=== PATIENT | female | born 1955 | race Caucasian/White ===

== ENCOUNTER 2021-05-13 11:31 | Outpatient (REF) | payer MEDICAID, SELFPAY ==
[2021-05-13 13:33] LABS: MANUAL DIFF FLAG NO
[2021-05-13 13:38] LABS: Basophils Absolute Auto 0.1 X10*3/uL (0.0-0.2); Basophils Percent Auto 0.6 % (0-2); Eosinophils Absolute Auto 0.2 X10*3/uL (0.0-0.4); Eosinophils Percent Auto 2.1 % (0-4); Hematocrit 42.5 % (37.0-47.0); Hemoglobin 13.7 g/dl (12.0-16.0); Imm Gran Abs Auto 0.01 X10*3/uL (0.00-0.03); Imm Gran Pct Auto 0.1 % (0.0-0.4); Lymphocytes Absolute Auto 2.3 X10*3/uL (1.2-4.9); Lymphocytes Percent Auto 26.6 % (20-40); Mean Corpuscular HGB Conc 32.2 g/dl (31.0-35.0); Mean Platelet Volume 10.7 fL (9.4-12.3); Monocytes Absolute Auto 0.4 X10*3/uL (0.1-1.2); Monocytes Percent Auto 5.2 % (2-11); Neutrophils Absolute Auto 5.6 x10*3/uL (2.0-8.3); Neutrophils Percent Auto 65.4 % (45-73); Platelet Count 205 X10*3/uL (160-400); Red Blood Count 4.57 X10*6/uL (4.20-5.50); Red Cell Distribution Width 12.5 % (11.0-16.0); White Blood Count 8.5 X10*3/uL (4.8-10.8)
[2021-05-13 13:50] LABS: Alanine Aminotransferase 10 U/L (0-31); Albumin Level 4.4 g/dL (3.5-5.0); Alkaline Phosphatase 102 U/L (39-117); Anion Gap 14 (12-20); Aspartate Amino Transferase 14 U/L (5-31); Bilirubin Total 0.3 mg/dL (0.0-1.0); Blood Urea Nitrogen 9 mg/dL (9-16); Calcium 9.3 mg/dL (8.4-10.2); Carbon Dioxide 23 mmol/L (22-29); Chloride 105 mmol/L (96-108); Cholesterol 282 mg/dL; Estimated Glomerular Filt Rate > 60; Glucose Random 82 mg/dL (60-115); Potassium 4.3 mmol/L (3.3-5.1); Sodium 138 mmol/L (135-145); Total Protein 7.1 g/dL (6.5-8.0)
[2021-05-13 14:14] LABS: Free T4 (Free Thyroxine) 1.03 ng/dL (0.71-1.85); Thyroid Stimulating Hormone 0.36 uIU/mL (0.32-4.0); Vitamin D 25-OH Total 53.6 ng/mL (>30)
[2021-05-14 09:21] LABS: Thyroid Peroxidase Antibodies 523 IU/mL (<9)
== END 2021-05-13 11:32 | disposition home or self-care (01) ==
LOC: HO.10HDL 11:31
PROVIDERS: Visit Provider Internal Medicine
DX: E06.3 Autoimmune thyroiditis (principal); L40.9 Psoriasis, unspecified; E55.9 Vitamin D deficiency, unspecified
CPT/HCPCS: 36415; 80053; 82306; 82465; 84439; 84443; 85025; 86376

== ENCOUNTER 2021-08-28 09:48 | Outpatient (REF) | payer MEDICARE, MEDICAID, SELFPAY ==
--- NOTE | ~2021-08-28 | MM_ITS ---
EXAMINATION: BONE DENSITOMETRY CLINICAL INDICATION: Vertebral fracture. COMPARISON: This is the patient's baseline examination. TECHNIQUE: Using a [employer] DXA System (software version: 13.1) manufactured by [employer], dual-energy x-ray absorptiometry was performed of the lumbar spine and left hip. The images are of good technical quality. Summary results are attached. FINDINGS: AP SPINE L1-L2 (excluding L3 and L4): The data of L1-L4 has been changed to exclude the L3 and L4 vertebral bodies, because degenerative changes at these levels may cause overestimation of lumbar spine density. BMD 0.847 g/cm2, Z-score -0.6, T-score -2.6, osteoporosis. LEFT FEMUR, NECK: BMD 0.639 g/cm2, Z-score -1.1, T-score -2.9, osteoporosis. LEFT FEMUR, TOTAL: BMD 0.668 g/cm2, Z-score -1.1, T-score -2.7, osteoporosis. IDENTIFIED RISK FACTORS: Menopause, glucocorticoids (chronic), history of fracture (adult). HISTORY OF FRACTURE: Shoulder, foot. MEDICATIONS: Calcium supplements or multivitamin, vitamin D. MM/XR DEXA axial skeleton IMPRESSION: 1. DIAGNOSIS: Osteoporosis based on the lowest T-score value of -2.9 in the femoral neck applying World Health Organization criteria. 2. 10-YEAR FRACTURE RISK PREDICTION, FRAX: According to the guidelines, FRAX calculation should only be performed on patients in the osteopenia bone density category. Therefore, FRAX was not performed on this patient. 3. Treatment Recommendations: NOF guidelines recommend consideration for treatment in postmenopausal women and men age 50 and older presenting with the following: -A hip or vertebral (clinical or morphometric) fracture. -T-score less than or equal to -2.5 at the femoral neck or spine after appropriate evaluation to exclude secondary causes. -Low bone mass at the hip or spine and a 10-year fracture probability by FRAX of greater than or equal to 3% for hip fracture or greater than or equal to 20% for major osteoporotic fracture based on the [place] adapted WHO algorithm. 4. Other Recommendations: All treatment decisions require clinical judgment and consideration of individual patient factors, including patient preferences, comorbidities, previous drug use, risk factors not captured in the FRAX model (e.g. frailty, falls, vitamin D deficiency, increased bone turnover, interval significant decline in bone density) and possible under or overestimation of fracture risk by FRAX. Additional medical evaluation for secondary cause of low bone mineral density may be appropriate. FUTURE SCAN RECOMMENDATION: People with diagnosed cases of osteoporosis or at high risk for fracture should have regular bone mineral density tests. For patients eligible for Medicare, routine testing is allowed once every 2 years. The testing frequency can be increased to one year for patients who have rapidly progressing disease, those who are receiving or discontinuing medical therapy to restore bone mass, or have additional risk factors.
== END 2021-08-28 09:49 | disposition home or self-care (01) ==
LOC: HO.MAMMO 09:48
PROVIDERS: Visit Provider Internal Medicine
DX: Z13.820 Encounter for screening for osteoporosis (principal); M85.80 Other specified disorders of bone density and structure, unspecified site; Z78.0 Asymptomatic menopausal state
CPT/HCPCS: 77080

== ENCOUNTER 2023-04-07 10:24 | Outpatient (AMB) | payer MEDICARE, SELFPAY ==
[2023-04-07 10:34] VITALS: BP 102/70; PULSE 70; BMI 18.9
--- NOTE | 2023-04-07 10:34 | A.OFFVIS_ITS ---
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 She also states that she is going to go for a back surgery but nothing scheduled as yet. Any case, she states due to osteoporosis she was started on Fosamax about an year ago. After that, she started having lot of symptoms like chest pain. Not clear if it is esophagitis or something cardiac. Any case, she went to [facility]. She was supposed to get a stress test but never materialized. Around the same time, she was also having lot of palpitations and her heart rates were apparently in the 140s at different times. Those symptoms have improved significantly since that time. These days, she rarely feels palpitations. Otherwise, she would like to get her cardiac status worked up. She has a history of shoulder injury around 2 and half years ago after a fall. She states she had a major surgery to fix that. [facility] Medical History (Updated 04/07/23 @ 11:57 by Ramiro Bird MD) Dyslipidemia Thyroid disease Family History (Updated 04/07/23 @ 10:38 by Peg Dozier) Mother No problems noted. Father No problems noted. Maternal Grandmother Heart attack Social History (Updated 04/07/23 @ 10:38 by Peg Dozier) Alcohol intake: never Patient Tobacco Use Status: Never used Tobacco Review of Systems Const Denies chills, Denies daytime sleepiness, Denies fatigue, Denies fever(s), Denies frequent falls, Denies night sweats, Denies snoring, Denies weakness, Denies weight gain and Denies weight loss Eyes Denies loss of vision ENT Denies dizziness and Denies hearing loss Card Denies chest pain, Denies chest pain with activity, Denies syncope, Denies rapid heart rate, Denies edema, Denies claudication, Denies leg edema, Denies lightheadedness, Denies palpitations, Denies dyspnea, Denies dyspnea on exertion and Denies orthopnea Resp Denies cough, Denies excessive phlegm production, Denies dyspnea, Denies dyspnea on exertion, Denies snoring and Denies wheezing GI Denies abdominal pain, Denies hematochezia, Denies change in bowel habits, Denies change in stool character, Denies heartburn, Denies nausea and Denies vomiting Denies hematuria, Denies urinary frequency and Denies dysuria Musc Denies arthralgias, Denies muscle weakness, Denies numbness and Denies tingling Skin/Breast Denies nail changes and Denies rash Neuro Denies Abnormal speech present, Denies dizziness, Denies syncope, Denies frequent falls, Denies loss of vision, Denies memory loss, Denies numbness, Denies tingling and Denies weakness Psych Denies depression and Denies memory loss Endo Denies fatigue and Denies palpitations Aller/Immun Denies wheezing Physical Exam Vital Signs: Last Vital Signs Pulse 70 04/07/23 10:34 BP 102/70 04/07/23 10:34 BMI result Body Mass Index 18.9 Const General: comfortable and no acute distress Orientation/consciousness: patient oriented x3 HEENT Other: Unremarkable Head: Yes normal to inspection Neck Neck: Yes normal visual inspection Chest Chest palpation & inspection: normal inspection of the chest Resp Auscultation: clear to auscultation bilaterally Cardio Palpation: normal PMI Heart sounds: S1 normal heart sound present, S2 normal heart sound present, no gallops, no murmurs and no rubs GI Palpation (GI): Soft to palpation Back/Spine/Pelvis Other: unremarkable Skin General skin exam: no rashes or lesions noted Neuro General: patient oriented x3 Speech: No Abnormal speech present Extrem General: Yes normal to inspection Psych Mental Status: mental status grossly normal Office Procedures EKG Details: EKG with sinus, 70/min, no significant ST-T changes, normal OR/QTc. [id number], Complete Assessment & Plan Assessment & Plan (1) Palpitations: Code(s): R00.2 - Palpitations Plan: With regard to the palpitations, very infrequent and hence will be difficult to diagnosed on a Holter or event monitor. If bothersome, we can probably repeat but she states she is already feeling much better. 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 We will also get the echo report from there. (2) Precordial chest pain: Code(s): R07.2 - Precordial pain Plan: Unclear if it is something from esophagitis from Fosamax or cardiac. Does not look like she can do a stress test as she has a shoulder injury and will not be able to lie down comfortably for prolonged. Also has back issues. Hence we can do a coronary CTA. Plan discussed and she is agreeable. Orders: Orders CT Cardiac Coronary Angio Today I25.10 - Atherosclerotic heart disease of [place] coronary artery without angina pectoris, R07.2 - Precordial pain Basic Metabolic Panel Today R07.2 - Precordial pain Coding Level of Care Code New Pt Level 4 (28418) Diagnoses Palpitations R00.2 Precordial chest pain R07.2 CPT Codes EKG - CPT: 75746-[id number], Complete ([id number])
== END 2023-04-07 11:15 | disposition home or self-care (01) ==
PROVIDERS: Visit Provider Internal Medicine
DX: R00.2 Palpitations (principal); R07.2 Precordial pain
CPT/HCPCS: 93010; 99204

== ENCOUNTER → 2023-04-07 10:24 | Outpatient (BNVA) | payer MEDICARE, SELFPAY | PROVIDERS: Visit Provider Internal Medicine | DX: R00.2 Palpitations (principal); R07.2 Precordial pain | CPT/HCPCS: 93005; 99202 ==

== ENCOUNTER 2023-04-15 12:26 | Outpatient (REF) | payer MEDICARE, SELFPAY ==
--- NOTE | ~2023-04-15 | XR_ITS ---
EXAMINATION: XR CHEST CLINICAL INFORMATION: Cough COMPARISON: None available. TECHNIQUE: 2 views of the chest were obtained. FINDINGS: Possible hilar fullness may reflect hilar adenopathy or mass. Recommend further evaluation with dedicated chest CT with contrast. Partially visualized left shoulder hardware. Otherwise, lungs are clear. No effusion or pneumothorax. XR/XR chest 2V IMPRESSION: Possible hilar fullness may reflect hilar adenopathy or mass. Recommend further evaluation with dedicated chest CT with contrast.
[2023-04-15 12:59] LABS: MANUAL DIFF FLAG NO
[2023-04-15 13:28] LABS: Basophils Absolute Auto 0.1 X10*3/uL (0.0-0.2); Basophils Percent Auto 0.9 % (0-2); Eosinophils Absolute Auto 0.2 X10*3/uL (0.0-0.4); Eosinophils Percent Auto 2.4 % (0-4); Hematocrit 37.9 % (37.0-47.0); Hemoglobin 12.8 g/dl (12.0-16.0); Imm Gran Abs Auto 0.03 X10*3/uL (0.00-0.03); Imm Gran Pct Auto 0.4 % (0.0-0.4); Lymphocytes Absolute Auto 3.2 X10*3/uL (1.2-4.9); Lymphocytes Percent Auto 40.5 % (20-40); Mean Corpuscular HGB Conc 33.8 g/dl (31.0-35.0); Mean Corpuscular Hemoglobin 31.4 pg (27.0-33.0); Mean Corpuscular Volume 92.9 fL (80.0-98.0); Mean Platelet Volume 9.8 fL (9.4-12.3); Monocytes Absolute Auto 0.5 X10*3/uL (0.1-1.2); Neutrophils Percent Auto 49.8 % (45-73); Platelet Count 199 X10*3/uL (160-400); Red Blood Count 4.08 X10*6/uL (4.20-5.50); Red Cell Distribution Width 12.7 % (11.0-16.0)
[2023-04-15 14:04] LABS: Alanine Aminotransferase 31 U/L (0-31); Albumin Level 4.2 g/dL (3.5-5.0); Alkaline Phosphatase 97 U/L (39-117); Anion Gap 11 (12-20); Aspartate Amino Transferase 16 U/L (5-31); Bilirubin Total 0.2 mg/dL (0.0-1.0); Blood Urea Nitrogen 18 mg/dL (9-16); C Reactive Protein 1.43 mg/dL (< or = 0.50); Calcium 9.2 mg/dL (8.4-10.2); Carbon Dioxide 25 mmol/L (22-29); Chloride 106 mmol/L (96-108); Estimated Glomerular Filt Rate > 60; Glucose Random 81 mg/dL (60-115); Potassium 4.3 mmol/L (3.3-5.1); Sodium 138 mmol/L (135-145); Total Protein 7.2 g/dL (6.5-8.0)
[2023-04-15 14:19] LABS: Free T4 (Free Thyroxine) 0.83 ng/dL (0.71-1.85); Thyroid Stimulating Hormone 30.14 uIU/mL (0.32-4.0)
[2023-04-15 14:23] LABS: Influenza A PCR NEGATIVE (Negative); Influenza B PCR NEGATIVE (Negative); Resp Syncy Virus RNA Qual PCR NEGATIVE (Negative); SARS COV2 PCR INHOUSE POSITIVE (Negative)
== END 2023-04-15 12:27 | disposition home or self-care (01) ==
LOC: HO.LAB 12:26
PROVIDERS: PCP Internal Medicine; Visit Provider Internal Medicine
DX: R53.83 Other fatigue (principal); R05.9 Cough, unspecified; E03.9 Hypothyroidism, unspecified; Z86.16 Personal history of COVID-19; Z11.52 Encounter for screening for COVID-19; Z20.828 Contact with and (suspected) exposure to other viral communicable diseases
CPT/HCPCS: 0241U; 71046; 80053; 82550; 84439; 84443; 85025; 86140

== ENCOUNTER 2023-07-28 10:03 | Outpatient (AMB) | payer MEDICARE, SELFPAY ==
--- NOTE | 2023-07-28 10:06 | MHC.OFFVIS ---
Vital Signs 07/28/23 10:07 Height 5 ft 4 in Weight 110 lb BMI 18.9 BMI Reason not done Patient refused/unable BP 110/60 Blood Pressure Location Lt brachial Position Sitting Pulse 86 Pulse Source Pulse Oximeter Pulse Oximetry (%) 99 Oxygen Delivery Method Room Air Intake Visit Reasons: Follow up post coronary CTA Allergies fentanyl Adverse Reaction (Intermediate, Verified 04/07/23 10:35) Unknown Sulfa (Sulfonamide Antibiotics) Adverse Reaction (Intermediate, Verified 04/07/23 10:35) Unknown cavi wipes Adverse Reaction (Severe, Uncoded 04/07/23 10:36) Unknown Medication List - Last Reconciled 07/28/23 by Ramiro Bird MD ergocalciferol (vitamin D2) 2,500 mcg PO QWEEK ezetimibe 10 mg PO DAILY levothyroxine 100 mcg PO DAILY morphine 15 mg PO BID PRN HPI Comments Details: Kaila returns for follow-up. It seems that she he is on Fosamax due to osteoporosis. After that was started, she is having lot of symptoms like chest pain. Hence not clear if it was not clear if it was Fosamax stated issue or something cardiac. It seems that she was seemed at [facility] but she would like to switch here. Additionally, she is also noticing palpitations at different times. However, that is improved recently. Otherwise, no new complaints. She feels that lot of her issues are related to her thyroid dysfunction. She is planning to go to [facility] tomorrow for consultation. [facility] Medical History (Updated 07/28/23 @ 11:29 by Ramiro Bird MD) Dyslipidemia Thyroid disease Family History (Updated 04/07/23 @ 10:38 by Peg Dozier) Mother No problems noted. Father No problems noted. Maternal Grandmother Heart attack Social History (Updated 04/07/23 @ 10:38 by Peg Dozier) Alcohol intake: never Patient Tobacco Use Status: Never used Tobacco Review of Systems Const Denies weakness ENT Denies dizziness Card Denies chest pain, Denies chest pain with activity, Denies syncope, Denies rapid heart rate, Denies pedal edema, Denies edema, Denies leg edema, Denies lightheadedness, Denies palpitations, Denies dyspnea, Denies dyspnea on exertion and Denies orthopnea Resp Denies cough, Denies dyspnea and Denies dyspnea on exertion GI Denies hematochezia and Denies change in stool character Musc Denies abnormal gait, Denies muscle cramps, Denies muscle weakness, Denies numbness, Denies radiating pain into limb and Denies tingling Neuro Denies abnormal gait, Denies dizziness, Denies syncope, Denies numbness, Denies tingling and Denies weakness Endo Denies palpitations Physical Exam Vital Signs: Last Vital Signs Pulse 86 07/28/23 10:07 BP 110/60 07/28/23 10:07 Pulse Ox 99 07/28/23 10:07 Oxygen Delivery Method Room Air 07/28/23 10:07 BMI result Body Mass Index 18.9 Const General: comfortable and no acute distress Orientation/consciousness: patient oriented x3 HEENT Other: Unremarkable Head: Yes normal to inspection Neck Neck: Yes normal visual inspection Chest Chest palpation & inspection: normal inspection of the chest Resp Auscultation: clear to auscultation bilaterally Cardio Palpation: normal PMI Heart sounds: S1 normal heart sound present, S2 normal heart sound present, no gallops, no murmurs and no rubs GI Palpation (GI): Soft to palpation Back/Spine/Pelvis Other: unremarkable Skin General skin exam: no rashes or lesions noted Neuro General: patient oriented x3 Extrem General: Yes normal to inspection Psych Mental Status: mental status grossly normal Assessment & Plan Assessment & Plan (1) Precordial chest pain: Code(s): R07.2 - Precordial pain Category: Medical Plan: In the coronary CTA, there is minimal stenosis in the LAD/circumflex. Unlikely to be causing symptoms. There is also description of thickened/patulous esophagus with air-fluid levels suggesting esophageal dysmotility. Unclear if that is rather causing chest pain. Will refer her to GI for further evaluation. She agrees. (2) Palpitations: Code(s): R00.2 - Palpitations Category: Medical Plan: In prior Holter monitor, rare supraventricular ectopy with brief runs. Very rare ventricular ectopy. Mobitz type 1 block during sleep hours. Overall, nothing significant and we discussed these findings today. (3) Dyslipidemia: Code(s): E78.5 - Hyperlipidemia, unspecified Category: Medical Plan: Per patient, longstanding dyslipidemia and she also has intolerance to statins as well as Repatha. Advised to check lipids again and then we can try Praluent. She agrees. Plan Total time spent including review of data, counseling, documentation, coordination care-31 min. Orders: Orders Lipid Panel Today E78.5 - Hyperlipidemia, unspecified LDL Cholesterol Direct Today E78.2 - Mixed hyperlipidemia Referrals Gastroenterology Referral K22.4 - Dyskinesia of esophagus Medications: New alirocumab (Praluent Pen) inject into abdomen, thigh, or upper arm (deltoid muscle); rotate sites 75 mg subcut Q2W 2 mL 5RF E78.5 - Hyperlipidemia, unspecified Coding Level of Care Code Est Pt Level 4 (89583) Diagnoses Precordial chest pain R07.2 Palpitations R00.2 Dyslipidemia E78.5
[2023-07-28 10:07] VITALS: BP 110/60; PULSE 86; O2SAT 99; BMI 18.9
== END 2023-07-28 10:38 | disposition home or self-care (01) ==
PROVIDERS: PCP Internal Medicine; Referring Provider Internal Medicine; Visit Provider Internal Medicine
DX: R07.2 Precordial pain (principal); R00.2 Palpitations; E78.5 Hyperlipidemia, unspecified
CPT/HCPCS: 99214

== ENCOUNTER → 2023-07-28 10:03 | Outpatient (BNVA) | payer MEDICARE, SELFPAY | PROVIDERS: PCP Internal Medicine; Visit Provider Internal Medicine | DX: R07.2 Precordial pain (principal); R00.2 Palpitations; E78.5 Hyperlipidemia, unspecified | CPT/HCPCS: 99212 ==

== ENCOUNTER → 2024-08-25 10:54 | Outpatient (BNVA) | payer MEDICARE, SELFPAY | PROVIDERS: PCP Internal Medicine; Visit Provider Physician Assistant | DX: E03.9 Hypothyroidism, unspecified (principal); E04.1 Nontoxic single thyroid nodule; M81.0 Age-related osteoporosis without current pathological fracture; E78.5 Hyperlipidemia, unspecified; K22.4 Dyskinesia of esophagus; Z79.899 Other long term (current) drug therapy; Z13.31 Encounter for screening for depression; Z13.30 Encounter for screening examination for mental health and behavioral disorders, unspecified | CPT/HCPCS: 96127; 99202 ==

== ENCOUNTER 2024-08-25 15:34 | Outpatient (AMB) | payer MEDICARE, SELFPAY ==
--- NOTE | 2024-08-25 15:17 | A.OFFPC_ITS ---
Vital Signs 08/25/24 15:46 Height 5 ft 4 in Weight 108 lb BMI 18.5 BP 112/68 Respiration 16 Pulse 71 Pulse Source Pulse Oximeter Temp 97.8 F Temp Source Temporal Artery Scan Pulse Oximetry (%) 98 Oxygen Delivery Method Room Air Intake Visit Reasons: Routine Migration Agent Required: No Accompanied by: Self / Same As Patient Allergies fentanyl Adverse Reaction (Intermediate, Verified 08/25/24 15:17) Unknown Sulfa (Sulfonamide Antibiotics) Adverse Reaction (Intermediate, Verified 08/25/24 15:17) Unknown cavi wipes Adverse Reaction (Severe, Uncoded 08/26/23 07:46) Unknown Tobacco use date assessed: 08/25/24 Fall risk assessment: No Falls in past year Last assessed Fall Risk: 08/25/24 Dental Screening Dental Screen Date: 08/25/24 Did you have a dental visit in the last 12 months?: Yes Did you have a dental problem in the last 6 months where you did not have access to dental care?: No HPI HPI Comments History of Present Illness Details Kaila is a 69 year old with a past medical history of hyperlipidemia, hypothyroid, ddd lumbar spine presenting for follow up Endocrine: Was following with Dr Bender who is retiring. Hypothyroid: Last TSH elevated. Levothyroxine increased to 112mcg daily. Is starting new dose tomorrow Osteoporosis: Was on fosamax. Caused GI distress, chest pain Mammo 06/2023 DXA 2021 Colguard ordered ROS CONSTITUTIONAL: Denies weight loss, fever and chills. HEENT: Denies changes in vision and hearing. RESPIRATORY: Denies SOB and cough. CV: Denies palpitations and CP GI: Denies abdominal pain, nausea, vomiting and diarrhea. : Denies dysuria and urinary frequency. MSK: Denies new myalgia and joint pain. SKIN: Denies rash and pruritus. NEUROLOGICAL: Denies headache PSYCHIATRIC: Denies recent changes in mood. PHYSICAL EXAM: GENERAL: Alert and oriented x 3. NAD EYES: EOMI. Anicteric. HENT: Moist mucous membranes. No scleral icterus. No cervical lymphadenopathy. LUNGS: Clear to auscultation bilaterally. CARDIOVASCULAR: Regular rate and rhythm. No murmur. No JVD. ABDOMEN: Soft, non-tender +bs EXTREMITIES: No edema. Non-tender. SKIN: No rashes or lesions. Warm. NEUROLOGIC: No focal neurological deficits. CN II-XII grossly intact PSYCHIATRIC: Cooperative. Appropriate mood and affect [facility] Medical History Dyslipidemia Thyroid disease Family History Mother No problems noted. Father No problems noted. Maternal Grandmother Heart attack Social History Housing: House Alcohol intake: never Patient Tobacco Use Status: Never used Tobacco e-Cigarette/Vaping Use: Never Used service: No Current occupational status: retired Cognitive needs: No Hearing needs: No Vision needs: No Questionnaire PHQ-9 Over the last 2 weeks, how often have you been bothered by any of the following problems? 1. Little interest or pleasure in doing things: not at all 2. Feeling down, depressed, or hopeless: not at all 3. Trouble falling or staying asleep, or sleeping too much: not at all 4. Feeling tired or having little energy: not at all 5. Poor appetite or overeating: not at all 6. Feeling bad about yourself - or that you are a failure or have let yourself or your family down: not at all 7. Trouble concentrating on things, such as reading the newspaper or watching television: not at all 8. Moving or speaking so slowly that other people could have noticed. Or the opposite - being so fidgety or restless that you have been moving around a lot m ore than usual: not at all 9. Thoughts that you would be better off or of hurting yourself in some way: not at all Total score: 0 Depression Screening Interpretation: Negative Depression Screening Done: Yes 22790 - PHQ-9 Billing: Yes Source: Developed by Drs. Joe Cabello, Marine Miguel, Titi Ho and colleagues, with an educational dot from [email or web address]. Thrive Questionnaire Date Thrive assessed: 08/25/24 I am a: Patient Within the past 12 months, did the food you bought not last and you didn't have the money to get more?: Never true Within the past 12 months, did you worry whether your food would run out before you got money to buy more?: Never true Do you have trouble paying for medicines?: No Do you have trouble getting transportation to medical appointments?: No Do you have trouble paying your heating and electricity bill?: No Do you have trouble taking care of your child, family member or friend?: No Do you have trouble with day-to-day activities such as bathing, preparing meals, shopping, managing finances, etc.?: No Are you currently unemployed and looking for a job?: No Are you interested in more education?: No THRIVE Score: 0 AUDIT C Alcohol Use Questionnaire (AUDIT-C) 1. How often do you have a drink containing alcohol?: Never 3. How often do you have six or more drinks on one occasion?: Never Total Score: 0 FRANCES-7 AMB Questionnaire FRANCES-7 Date FRANCES - 7 assessed: 08/25/24 Feeling nervous, anxious, or on edge: 0 = Not at all Not being able to stop or control worryin = Not at all Worrying too much about different things: 0 = Not at all Trouble relaxin = Not at all Being so restless that it is hard to sit still: 0 = Not at all Becoming easily annoyed or irritable: 0 = Not at all Feeling afraid as if something awful might happen: 0 = Not at all Total FRANCES-7 score (0-4 normal; 5-9 mild; 10-14 moderate; 15-21 severe): 0 Source: Developed by Drs. Joe Cabello, Marine Miguel, Titi Ho and colleagues, with an educational dot from [email or web address]. Physical exam (Primary Care) Tobacco/Smoking Status: Tobacco use Status Tobacco use date assessed 08/25/24 08/25/24 15:19 Patient Tobacco Use Status Never used Tobacco 08/25/24 15:19 e-Cigarette/Vaping Use Never Used 08/25/24 15:19 PHQ-9: PHQ-9 Score PHQ-9: Total score 0 08/25/24 15:42 Depression Screening Interpretation: Negative Thrive Assessment: Date of Thrive Assessment Date Thrive assessed 08/25/24 08/25/24 15:19 Coding Level of Care Code New Pt Level 4 (72569) Complex EM visit Add On G2211 Diagnoses Hypothyroidism, unspecified type E03.9 Hypothyroidism type: unspecified Thyroid nodule E04.1 Osteoporosis, unspecified osteoporosis type, unspecified pathological fracture presence M81.0 Osteoporosis type: unspecified Presence of current pathological fracture: unspecified Dyslipidemia E78.5 Esophageal dysmotility K22.4 Additional Codes PHQ-9 - 69829 - PHQ-9 Billing: Yes ([id number]) Assessment & Plan Assessment & Plan (1) Hypothyroid: Code(s): E03.9 - Hypothyroidism, unspecified Category: Medical Qualifiers: Hypothyroidism type: unspecified Qualified Code(s): E03.9 - Hypothyroidism, unspecified (2) Thyroid nodule: Code(s): E04.1 - Nontoxic single thyroid nodule Category: Medical (3) Osteoporosis: Code(s): M81.0 - Age-related osteoporosis without current pathological fracture Category: Medical Qualifiers: Osteoporosis type: unspecified Presence of current pathological fracture: unspecified Qualified Code(s): M81.0 - Age-related osteoporosis without current pathological fracture (4) Dyslipidemia: Code(s): E78.5 - Hyperlipidemia, unspecified Category: Medical (5) Esophageal dysmotility: Code(s): K22.4 - Dyskinesia of esophagus Category: Medical Plan 69 year old to establish care past medical, surgical, social reviewed. mammo & DXA ordered Cologuard ordered Biochemically and clinically hypothyroid-starting new dose. recheck 8 weeks Orders: Orders US thyroid Today E04.1 - Nontoxic single thyroid nodule XR DEXA axial skeleton Today M81.0 - Age-related osteoporosis without current pathological fracture Vitamin D 25-OH (D2 and D3) Today M81.0 - Age-related osteoporosis without current pathological fracture TSH reflex Free T4 8 Weeks E03.9 - Hypothyroidism, unspecified MM screening mammo BI Today Z12.31 - Encounter for screening mammogram for malignant neoplasm of breast Referrals Cologuard Test Z12.11 - Encounter for screening for malignant neoplasm of colon, Z12.12 - Encounter for screening for malignant neoplasm of rectum
[2024-08-25 15:46] VITALS: BP 112/68; PULSE 71; RESP 16; TEMP 36.6; O2SAT 98; BMI 18.5
== END 2024-08-25 16:13 | disposition home or self-care (01) ==
LOC: HO.HMCHD 15:35
PROVIDERS: PCP Internal Medicine; Visit Provider Internal Medicine
DX: E03.9 Hypothyroidism, unspecified (principal); E04.1 Nontoxic single thyroid nodule; M81.0 Age-related osteoporosis without current pathological fracture; E78.5 Hyperlipidemia, unspecified; K22.4 Dyskinesia of esophagus

== ENCOUNTER 2024-12-01 09:12 | Outpatient (AMB) | payer MEDICARE, SELFPAY ==
--- NOTE | 2024-12-01 09:17 | MHC.PC.OV ---
Vital Signs 12/01/24 09:25 Height 5 ft 4 in Weight 117 lb 4 oz BMI 20.1 BMI Reason not done Patient refused/unable BP 100/64 Blood Pressure Location Rt brachial Position Sitting Respiration 14 Pulse 83 Pulse Source Pulse Oximeter Temp 97.8 F Temp Source Temporal Artery Scan Pulse Oximetry (%) 97 Oxygen Delivery Method Room Air Intake Visit Reasons: T[facility] from [address] [place] [address] dr Gallardo Note: Kaila presents in the office today for a follow up. Issues with thyroid levels. Patient is fasting and would like to do labs. Allergies fentanyl Adverse Reaction (Intermediate, Verified 12/01/24 09:20) Unknown Sulfa (Sulfonamide Antibiotics) Adverse Reaction (Intermediate, Verified 12/01/24 09:20) Unknown cavi wipes Adverse Reaction (Severe, Uncoded 12/01/24 09:20) Unknown Tobacco use date assessed: 12/01/24 Dental Screening Dental Screen Date: 12/01/24 Did you have a dental visit in the last 12 months?: Yes Did you have a dental problem in the last 6 months where you did not have access to dental care?: No Was dental information given to patient?: Patient has dentist HPI HPI Comments History of Present Illness Details Kaila is a 69 year old with a past medical history of hyperlipidemia, hypothyroid, ddd lumbar spine presenting for follow up Patient broke down on the [employer] 1am last night. Waited on the [employer]. She checked her tires prior to leaving. Frustrated. Endocrine: Was following with Dr Bender who just retired. Hypothyroid: Last TSH elevated. Levothyroxine increased but repeat TSH was still elevated. Osteoporosis: Was on fosamax. Caused GI distress, chest pain Interested in hormone replacement therapy patches specifically. She is achy and fatigued MSK: Follows with [facility]. Mammo 06/2023-[facility] DXA 2021 Cologuard ordered ROS CONSTITUTIONAL: Denies weight loss, fever and chills. HEENT: Denies changes in vision and hearing. RESPIRATORY: Denies SOB and cough. CV: Denies palpitations and CP GI: Denies abdominal pain, nausea, vomiting and diarrhea. : Denies dysuria and urinary frequency. MSK: Denies new myalgia and joint pain. SKIN: Denies rash and pruritus. NEUROLOGICAL: Denies headache PSYCHIATRIC: Denies recent changes in mood. PHYSICAL EXAM: GENERAL: Alert and oriented x 3. NAD EYES: EOMI. Anicteric. HENT: Moist mucous membranes. No scleral icterus. No cervical lymphadenopathy. LUNGS: Clear to auscultation bilaterally. CARDIOVASCULAR: Regular rate and rhythm. No murmur. No JVD. ABDOMEN: Soft, non-tender +bs EXTREMITIES: No edema. Non-tender. SKIN: No rashes or lesions. Warm. NEUROLOGIC: No focal neurological deficits. CN II-XII grossly intact PSYCHIATRIC: Cooperative. Appropriate mood and affect [facility] Medical History Lumbar spondylosis Lumbar radiculopathy Dyslipidemia Thyroid disease Family History Mother No problems noted. Father No problems noted. Maternal Grandmother Heart attack Social History Housing: House Alcohol intake: never Patient Tobacco Use Status: Never used Tobacco e-Cigarette/Vaping Use: Never Used Second Hand Smoke Exposure: No service: No Current occupational status: retired Cognitive needs: No Hearing needs: No Vision needs: No Questionnaire Thrive Questionnaire Date Thrive assessed: 08/25/24 FRANCES-7 AMB Questionnaire FRANCES-7 Date FRANCES - 7 assessed: 08/25/24 Source: Developed by Drs. Joe Cabello, Marine Miguel, Titi Ho and colleagues, with an educational dot from [employer]. Physical exam (Primary Care) Vital Signs: Last Vital Signs Temp 97.8 F 12/01/24 09:25 Pulse 83 12/01/24 09:25 Resp 14 12/01/24 09:25 BP 100/64 12/01/24 09:25 Pulse Ox 97 12/01/24 09:25 Oxygen Delivery Method Room Air 12/01/24 09:25 BMI result Body Mass Index 20.1 Tobacco/Smoking Status: Tobacco use Status Tobacco use date assessed 12/01/24 12/01/24 09:28 Patient Tobacco Use Status Never used Tobacco 12/01/24 09:25 e-Cigarette/Vaping Use Never Used 12/01/24 09:25 Thrive Assessment: Date of Thrive Assessment Date Thrive assessed 08/25/24 12/01/24 09:19 Coding Level of Care Code Est Pt Level 4 (74090) Complex EM visit Add On G2211 Diagnoses Hypothyroidism, unspecified type E03.9 Hypothyroidism type: unspecified Dyslipidemia E78.5 Lumbar radiculopathy M54.16 Assessment & Plan Assessment & Plan (1) Hypothyroid: Code(s): E03.9 - Hypothyroidism, unspecified Category: Medical Qualifiers: Hypothyroidism type: unspecified Qualified Code(s): E03.9 - Hypothyroidism, unspecified (2) Dyslipidemia: Code(s): E78.5 - Hyperlipidemia, unspecified Category: Medical (3) Lumbar radiculopathy: Comment: [facility]. L5-S1 interlaminar epidural injections Code(s): M54.16 - Radiculopathy, lumbar region Category: Medical Plan 69 year old for follow up Hypothyroid-Recommend synthroid. Could consider integrative, t3 replacement etc. Discussed pro-con HRT. Sent patches Osteoporosis-could consider rheum/endocrine Orders: Orders Triiodothyronine T3 Free 12/01/24 E03.9 - Hypothyroidism, unspecified, E78.5 - Hyperlipidemia, unspecified, M81.0 - Age-related osteoporosis without current pathological fracture, R53.83 - Other fatigue IRON PROFILE 12/01/24 E03.9 - Hypothyroidism, unspecified, E78.5 - Hyperlipidemia, unspecified, M81.0 - Age-related osteoporosis without current pathological fracture, R53.83 - Other fatigue Thyroid Peroxidase Antibodies 12/01/24 E03.9 - Hypothyroidism, unspecified, E78.5 - Hyperlipidemia, unspecified, M81.0 - Age-related osteoporosis without current pathological fracture, R53.83 - Other fatigue Free T4 (Free Thyroxine) 12/01/24 E03.9 - Hypothyroidism, unspecified, E78.5 - Hyperlipidemia, unspecified, M81.0 - Age-related osteoporosis without current pathological fracture, R53.83 - Other fatigue Triiodothyronine T3 Total 12/01/24 E03.9 - Hypothyroidism, unspecified, E78.5 - Hyperlipidemia, unspecified, M81.0 - Age-related osteoporosis without current pathological fracture, R53.83 - Other fatigue TSH reflex Free T4 12/01/24 E03.9 - Hypothyroidism, unspecified, E78.5 - Hyperlipidemia, unspecified, M81.0 - Age-related osteoporosis without current pathological fracture, R53.83 - Other fatigue Thyroid Stimulating Hormone 12/01/24 E03.9 - Hypothyroidism, unspecified, E78.5 - Hyperlipidemia, unspecified, M81.0 - Age-related osteoporosis without current pathological fracture, R53.83 - Other fatigue Vitamin B12 and Folate 12/01/24 E03.9 - Hypothyroidism, unspecified, E78.5 - Hyperlipidemia, unspecified, M81.0 - Age-related osteoporosis without current pathological fracture, R53.83 - Other fatigue Medications: New estradiol-levonorgestrel 0.045-0.015 mg/24 hr 1 patch transdermal QWEEK 4 ea 3RF
[2024-12-01 09:25] VITALS: BP 100/64; PULSE 83; RESP 14; TEMP 36.6; O2SAT 97; BMI 20.1
--- OUTSIDE RECORDS SUMMARY | 2024-12-01 09:50 | XMS_ITS | Clinical Summary ---
Author Organization [facility] Address [address] [place] [address] Phone Care Team Providers Care Shipwright Supervisor Name Role Phone Laurence Garner MD Primary Care Provider [phone] Encounters Date Type Department Care Team Description 10/18/2024 12:54 PM EDT - 10/18/2024 11:59 PM EDT [facility] [address] [phone] Other signs and symptoms in breast Discharge Disposition: Home or Self Care 10/16/2024 2:12 PM EDT - 10/16/2024 11:59 PM EDT Hospital Encounter [facility] Ultrasound [address] [place] [phone] Nontoxic single thyroid nodule Discharge Disposition: Home or Self Care 09/11/2024 7:25 AM EDT - 09/11/2024 11:59 PM EDT Hospital Encounter [facility] Bone Density [address] [place] [phone] Age-related osteoporosis without current pathological fracture Discharge Disposition: Home or Self Care from Last 3 Months Surgical History Surgery Date Site/Laterality Comments STEREOTACTIC CORE BIOPSY BREAST LUMPECTOMY Social History Tobacco Use Types Packs/Day Years Used Date Smoking Tobacco: Never Assessed Comments No Sex and Gender Information Value Date Recorded Sex Assigned at Female 08/29/2024 9:44 AM EDT Legal Sex Female 11:19 AM EST Gender Identity Female 08/29/2024 9:44 AM EDT Sexual Orientation Straight 08/29/2024 9: 44 AM EDT Obstetrics History Last Filed Vital Signs Vital Sign Reading Time Taken Comments Blood Pressure - - Pulse - - Temperature - - Respiratory Rate - - Oxygen Saturation - - Inhaled Oxygen Concentration - - Weight 48.5 kg (107 lb) 10/18/2024 1:09 PM EDT Height 165.1 cm (5' 5 ) 10/18/2024 1:09 PM EDT Body Mass Index 17.81 10/18/2024 1:09 PM EDT Plan of Treatment Health Maintenance Due Date Last Done Comments DTaP,Tdap,and Td Vaccines (1 - Tdap) 07/31/1975 Pneumococcal Vaccine: 50+ Years (1 of 1 - PCV) 2006 Zoster Vaccines (1 of 2) 2006 Colorectal Cancer Screening: Colonoscopy 02/10/2022 Falls Risk Assessment 02/10/2022 Hepatitis C Screening 02/10/2022 Medicare Annual Wellness Visit 02/10/2022 Social Influencers of Health Screening 02/10/2022 Depression Screening 03/15/2024 COVID-19 Vaccine (1 - 2023-2 5 season) 2024 Influenza Vaccine (#1) 2024 , 01/17/2019, 12/15/2017 Breast Cancer Screening 10/18/2026 10/19/19 25, 06/05/2021 Osteoporosis Screening (Bone Density Screening) 09/11/2034 09/11/2024 RSV Immunization Adult Patients Completed 02/02/2023 HIB Vaccines Aged Out No longer eligi ble based on patient's age to complete this topic HPV Vaccines Aged Out No longer eligi ble based on patient's age to complete this topic Hepatitis A Vaccines Aged Out No long er eligible based on patient's age to complete this topic Hepatitis B Vaccines Aged Out No long er eligible based on patient's age to complete this topic IPV Vaccines Aged Out No longer eligi ble based on patient's age to complete this topic MMR Vaccines Aged Out No longer eligi ble based on patient's age to complete this topic Meningococcal ACWY Vaccine Aged Out N o longer eligible based on patient's age to complete this topic Meningococcal B Vaccine Aged Out No l onger eligible based on patient's age to complete this topic RSV Immunization Patients Under 20 months Aged Out No longer eligible b ased on patient's age to complete this topic Varicella Vaccines Aged Out No longer eligible based on patient's age to complete this topic Procedures Procedure Name Priority Date/Time Associated Diagnosis Comments MG MAMMO DIGITAL DIAGNOSTIC W ALEXX BILAT Routine 10/18/2024 2:04 PM EDT Other signs and symptoms in breast US HEAD NECK SOFT TISSUE Routine 10/16/2024 2:49 PM EDT Nontoxic single thyroid nodule BD BONE DENSITY DXA AXIAL SKELETON Routine 09/11/2024 8:10 AM EDT Age-related osteoporosis without current pathological fracture from Last 3 Months Results * MG Mammo Digital Diagnostic w Alexx bilat (10/18/2024 2:04 PM EDT) Anatomical Region Laterality Modality Breast Bilateral Mammography 10/18/2024 1:25 PM EDT Impressions 10/18/2024 3:23 PM EDT No evidence of breast malignancy. BI-RADS CATEGORY: 2 - BENIGN RECOMMENDATION: Screening bilateral mammogram is recommended in 1 year. Mammo Location: [facility], [address] [place] [address], [address], . -------- FINAL REPORT -------- Dictated By: Tosha Garcia Dictated Date: 10/18/2024 13:25 ET Assigned Physician: Tosha Garcia Reviewed and Electronically Signed By: Tosha Garcia Signed Date: 10/18/2024 15:23 ET Workstation ID: [id number] Transcribed By: Self Edit Transcribed Date: 10/18/2024 13:38 ET Narrative 10/18/2024 3:23 PM EDT CLINICAL: 69 years old, Female, follow-up of benign biopsy. COMPARISON: 07/02/2023, 12/29/2022, 06/25/2022, 05/25/2022, 12/09/2021, 06/05/2021, 03/14/2020 TECHNIQUE: Bilateral MLO and CC views were obtained digitally with 3-D mammogram (digital breast tomosynthesis). Computer-aided detection was utilized in evaluation of this exam (CAD). FINDINGS: There is no evidence of suspicious mass or architectural distortion. No worrisome calcifications are evident. Oval mass with associated biopsy marker in the right breast at 9 o'clock posterior depth has decreased in size now measuring 4 mm. Prior biopsy yielded benign results. BREAST DENSITY: B - There are scattered areas of fibroglandular density. Procedure Note Tosha Garcia MD - 10/18/2024 CLINICAL: 69 years old, Female, follow-up of benign biopsy. COMPARISON: 07/02/2023, 12/29/2022, 06/25/2022, 05/25/2022, 12/09/2021,06/05/2021, 03/14/2020 TECHNIQUE: Bilateral MLO and CC views were obtained digitally with 3-Dmammogram (digital breast tomosynthesis). Computer-aided detection wasutilized in evaluation of this exam (CAD). FINDINGS: There is no evidence of suspicious mass or architectural distortion. Noworrisome calcifications are evident. Oval mass with associated biopsymarker in the right breast at 9 o'clock posterior depth has decreased insize now measuring 4 mm. Prior biopsy yielded benign results. BREAST DENSITY: B - There are scattered areas of fibroglandular density. IMPRESSION: No evidence of breast malignancy. BI-RADS CATEGORY: 2 - BENIGN RECOMMENDATION: Screening bilateral mammogram is recommended in 1 year. Mammo Location: [facility], [address] [place] [address], [id number], . -------- FINAL REPORT -------- Dictated By: Tosha Garcia Dictated Date: 10/18/2024 13:25 ET Assigned Physician: Tosha Garcia Reviewed and Electronically Signed By: Tosha Garcia Signed Date: 10/18/2024 15:23 ET Workstation ID: [id number] Transcribed By: Self Edit Transcribed Date: 10/18/2024 13:38 ET us Alfonzo Rhoades MD IMG BI PROCEDURES Final Resul t * US Head Neck Soft Tissue (10/16/2024 2:49 PM EDT) Anatomical Region Laterality Modality Head and Neck Ultrasound 10/17/2024 10:3 1 AM EDT Impressions 10/17/2024 10:36 AM EDT No thyroid nodule is demonstrated. Diffusely heterogeneous thyroid echotexture consistent with thyroiditis. No change since 01/07/2017. Code 37372 -------- FINAL REPORT -------- Dictated By: Thomas Carroll Dictated Date: 10/17/2024 10:31 ET Assigned Physician: Thomas Carroll Reviewed and Electronically Signed By: Thomas Carroll Signed Date: 10/17/2024 10:36 ET Workstation ID: [id number] Transcribed By: Self Edit Transcribed Date: 10/17/2024 10:31 ET Narrative 10/17/2024 10:36 AM EDT HISTORY: The patient is a 69-year-old female with provided history of a thyroid nodule. Please note that previous ultrasound examinations of the thyroid gland performed 01/07/2017 and 10/01/2014 demonstrated no evidence of a nodule, and no imaging study demonstrating a thyroid nodule has been performed at this institution. No previous outside study is provided for comparison. FINDINGS: Real-time ultrasonography of the thyroid gland is performed. The thyroid demonstrates diffusely heterogeneous echotexture as also seen on prior studies most recently 01/07/2017, with appearance suggestive of thyroiditis. The thyroid is normal in size, with the right lobe measuring 3.7 x 1.3 x 1.5 cm and the left lobe measuring 4.3 x 1.4 x 1.5 cm. The isthmus measures 2.8 mm in thickness. No nodule is seen. Procedure Note Thomas Carroll MD - 10/17/2024 HISTORY: The patient is a 69-year-old female with provided history of athyroid nodule. Please note that previous ultrasound examinations of thethyroid gland performed 01/07/2017 and 10/01/2014 demonstrated no evidenceof a nodule, and no imaging study demonstrating a thyroid nodule has beenperformed at this institution. No previous outside study is provided forcomparison. FINDINGS: Real-time ultrasonography of the thyroid gland is performed. Thethyroid demonstrates diffusely heterogeneous echotexture as also seen onprior studies most recently 01/07/2017, with appearance suggestive ofthyroiditis. The thyroid is normal in size, with the right lobe measuring3.7 x 1.3 x 1.5 cm and the left lobe measuring 4.3 x 1.4 x 1.5 cm. Theisthmus measures 2.8 mm in thickness. No nodule is seen. IMPRESSION: No thyroid nodule is demonstrated. Diffusely heterogeneous thyroidechotexture consistent with thyroiditis. No change since 01/07/2017. Code 31502 -------- FINAL REPORT -------- Dictated By: Thomas Carroll Dictated Date: 10/17/2024 10:31 ET Assigned Physician: Thomas Carroll Reviewed and Electronically Signed By: Thomas Carroll Signed Date: 10/17/2024 10:36 ET Workstation ID: [id number] Transcribed By: Self Edit Transcribed Date: 10/17/2024 10:31 ET us Laurence Garner MD IMG US PROCEDURES Final Result * BD Bone Density DXA Axial Skeleton (09/11/2024 8:10 AM EDT) Anatomical Region Laterality Modality Wrist, Hip, L-spine Bone Densito metry 09/11/2024 9:29 AM EDT Impressions 09/11/2024 9:30 AM EDT 1. Osteoporosis. 2. FRAX analysis yields a 10-year probability of major osteoporotic fracture of 26.4% and a 10-year probability of hip fracture of 9.1%. Code 42386 -------- FINAL REPORT -------- Dictated By: Thomas Carroll Dictated Date: 09/11/2024 09:29 ET Assigned Physician: Thomas Carroll Reviewed and Electronically Signed By: Thomas Carroll Signed Date: 09/11/2024 09:30 ET Workstation ID: [id number] Transcribed By: Self Edit Transcribed Date: 09/11/2024 09:29 ET Narrative 09/11/2024 9:30 AM EDT HISTORY: The patient is a 69-year-old postmenopausal female with clinical concern for metabolic bone disease. FINDINGS: Dual energy x-ray absorptiometry of the lumbar spine and femurs is performed. The mean bone mineral density at L1-2 is 0.810 gm/cm2 which is 70% of that of young normals and 88% of that of age matched controls. This yields a T-score of -3.0 and a Z-score of -0.9 which is diagnostic of osteoporosis. The mean bone mineral density of the femurs bilaterally is 0.647 gm/cm2 which is 64% of that of young normals and 81% of that of age matched controls. This yields a T-score of -2.9 and a Z-score of -1.2 which is diagnostic of osteoporosis. The T-score of the right femoral neck is -3.1 and that of the left femoral neck is -3.1 which is diagnostic of osteoporosis. Procedure Note Thomas Carroll MD - 09/11/2024 HISTORY: The patient is a 69-year-old postmenopausal female with clinicalconcern for metabolic bone disease. FINDINGS: Dual energy x-ray absorptiometry of the lumbar spine and femursis performed. The mean bone mineral density at L1-2 is 0.810 gm/cm2 whichis 70% of that of young normals and 88% of that of age matched controls.This yields a T-score of -3.0 and a Z-score of -0.9 which is diagnostic ofosteoporosis. The mean bone mineral density of the femurs bilaterally is 0.647 gm/dk1oimoj is 64% of that of young normals and 81% of that of age matchedcontrols. This yields a T-score of -2.9 and a Z-score of -1.2 which isdiagnostic of osteoporosis. The T- score of the right femoral neck is -3.1and that of the left femoral neck is -3.1 which is diagnostic ofosteoporosis. IMPRESSION: 1. Osteoporosis. 2. FRAX analysis yields a 10-year probability of major osteoporoticfracture of 26.4% and a 10-year probability of hip fracture of 9.1%. Code 26960 -------- FINAL REPORT -------- Dictated By: Thomas Carroll Dictated Date: 09/11/2024 09:29 ET Assigned Physician: Thmoas Carroll Reviewed and Electronically Signed By: Thomas Carroll Signed Date: 09/11/2024 09:30 ET Workstation ID: [id number] Transcribed By: Self Edit Transcribed Date: 09/11/2024 09:29 ET Laurence Garner MD IMG DXA PROCEDURES Final Resul t from Last 3 Months Insurance [employer] - [place] MEDICARE ADVANTAGE Care Teams Shipwright Supervisor Relationship Specialty Start Date End Date Laurence Garner MD [address] [place] [id number] PCP - General Internal Medicine 08/29/24
--- OUTSIDE RECORDS SUMMARY | 2024-12-01 09:50 | XMS_ITS | Encounter Summary ---
Author Organization [facility] Address [address] [place] [address] Phone Care Team Providers Care Relief Manager Name Role Phone Sendy Holm MD Primary Care P rovider Encounter Details Date Type Department Care Team (Late st Contact Info) Description 08/17/2018 Procedure Pass [facility] [address] [place] [address] Social History Tobacco Use Types Packs/Day Years Used Date Smoking Tobacco: Never Smokeless Tobacco: Never Alcohol Use Standard Drinks/Week Comments No 0 (1 standard drink = 0.6 oz pur e alcohol) Comments Unknown Sex and Gender Information Value Date Recorded Sex Assigned at Not on file Legal Sex Female 5:35 PM EST Gender Identity Not on file Sexual Orientation Not on file documented as of this encounter Plan of Treatment Not on file documented as of this encounter Visit Diagnoses Not on filedocumented in this encounter Care Teams Relief Manager Relationship Specialty Start Date End Date Sendy Holm MD [address] [place] [address] PCP - General 04/01/16 documented as of this encounter Additional Source Comments The information contained in this document represents components of the legal health record. It is not the complete legal health record.[facility]
--- OUTSIDE RECORDS SUMMARY | 2024-12-01 09:50 | XMS_ITS | Encounter Summary ---
Author Organization [facility] Address [address] [place] [address] Phone Care Team Providers Care [employer] Social Science Teacher Name Role Phone Sendy Holm MD Primary Care P rovider Encounter Details Date Type Department Care Team (Late st Contact Info) Description 08/17/2018 Procedure Pass [facility] [address] [place] [address] Social History Tobacco Use Types Packs/Day Years [...] on filedocumented in this encounter Care Teams [employer] Social Science Teacher Relationship Specialty Start Date End Date Sendy Holm MD [address] [place] [address] PCP - General 04/01/16 documented as of this encounter Additional Source Comments The information contained in this document represents components of the legal health record. It is not the complete legal health record.[facility]
--- OUTSIDE RECORDS SUMMARY | 2024-12-01 09:50 | XMS_ITS | Clinical Summary ---
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 Partial fill ok Aware that patient has prior medication script filled 09/30/2018. Patient had family member pass away and did not bring prescription to [facility]. Giving temporary prescription until returning home. 8 tablet 9 Active ezetimibe (ZETIA) 10 mg tablet Take 10 mg by mouth daily. Active levothyroxine (SYNTHROID, LEVOTHROID) 112 MCG tablet Take 1 tablet (112 mcg total) by mouth every morning. 90 tablet 1 5 Active Active Problems Problem Noted Date Diagnosed Date Thyroid nodule 08/17/2024 Assessment & Plan (08/17/2024 4:40 PM EDT): Exam suggests left lobe nodule Closed fracture of proximal end of left humerus, initial encounter 08/17/2018 Vitamin D deficiency 07/27/2018 Assessment & Plan (07/27/2018 9:43 AM EDT): Taking 50,000 units weekly Menopausal and postmenopausal disorder 9 Assessment & Plan (07/27/2018 9:43 AM EDT): On HRT Fracture of humerus 05/11/2018 Assessment & Plan (07/27/2018 9:39 AM EDT): In sling Hypothyroidism 09/27/2013 Overview (05/04/2014): Hypothyroidism Assessment & Plan (08/17/2024 4:37 PM EDT): Will increase levothyroxine to 112 mcg daily Assessment & Plan (07/29/2023 2:52 PM EDT): She did lab last week with use of levothyroxine 850 mcg weekly, equals 121 mcg daily. Assessment & Plan (09/16/2021 8:56 AM EDT): Told of TSH suppression. Assessment & Plan (07/27/2018 9:42 AM EDT): Needs dose adjustment Osteoporosis 09/27/2013 Overview (05/04/2014): Osteoporosis Assessment & Plan (08/17/2024 4:36 PM EDT): Has not had Reclast, now using Vitamin D 1000 units daily Assessment & Plan (07/29/2023 2:56 PM EDT): She did not have Reclast. Assessment & Plan (09/07/2022 9:20 AM EDT): Esophageal pain with Fosamax Assessment & Plan (09/16/2021 8:57 AM EDT): Will be treated by her PCP in [facility] Assessment & Plan (07/27/2018 9:51 AM EDT): Start alendronate Encounters Date Type Department Care Team Description 09/26/2024 Telephone [facility] at [facility] [address] [place] [address] Kris Bender MD Radiology Outreach (Bone Density) 09/26/2024 [facility] MRI at [facility] [address] [place] [address] Kris Bender MD Radiology Outreach (US Thyroid Gland) from Last 3 Months Family History Medical History Relation Comments Decreased Bone Mass Mother Osteoporosis Octavio's thyroiditis Sister Hashimot o thyroiditis Relation Status Comments Mother Sister Social History Tobacco Use Types Packs/Day Years Used Date Smoking Tobacco: Never Smokeless Tobacco: Never Tobacco Cessation:Counseling Given: Not Answered Alcohol Use Standard Drinks/Week Comments No 0 (1 standard drink = 0.6 oz pur e alcohol) Education Answer Date Recorded Are you interested in more education? Not on rosa e 07/11/2022 Are you concerned about learning? Not on file 07/11/2022 No 07/11/2022 No 07/11/2022 Digital Access Answer Date Recorded No 08/07/2022 No 08/07/2022 Reliable internet access at home? Not on file 08/07/2022 Device with a working camera? Not on file Comments No Sex and Gender Information Value Date Recorded Sex Assigned at Not on file Legal Sex Female 5:35 PM EST Gender Identity Not on file Sexual Orientation Not on file Last Filed Vital Signs Vital Sign Reading Time Taken Comments Blood Pressure 112/60 07/29/2023 2:35 PM EDT Pulse 80 07/29/2023 2:35 PM EDT Temperature 36.6 C (97.8 F) 08/24/2018 8:21 AM EDT Respiratory Rate 16 08/24/2018 8:21 AM EDT Oxygen Saturation 97% 07/29/2023 2:35 PM EDT Inhaled Oxygen Concentration - - Weight 48.5 kg (107 lb) 08/17/2024 4:10 PM EDT Height 162.6 cm (5' 4.02 ) 08/17/2024 4:10 PM ED T Body Mass Index 18.36 08/17/2024 4:10 PM EDT Plan of Treatment Health Maintenance Due Date Last Done Comments Adult Td,Tdap Booster 1956 LIPID PANEL 1956 DEPRESSION SCREENING 1968 HEPATITIS C SCREENING 1974 MAMMOGRAM 1996 COLOGUARD 2001 COLONOSCOPY 2001 COLORECTAL CANCER SCREENING 2001 FIT TEST 2001 FOBT 2001 SIGMOIDOSCOPY 2001 VIRTUAL COLONOSCOPY 2001 PNEUMOCOCCAL VACCINES (50+ years) (1 of 1 - PCV) 2006 ZOSTER VACCINES (1 of 2) 2006 OSTEOPOROSIS SCREENING INITI AL (ONE-TIME) 2021 INFLUENZA VACCINE (#1) 2024 , 01/17/2019, 12/15/2017 COVID-19 VACCINE (1 - 2023-2 5 season) 2024 TSH LEVEL 08/17/2025 08/17/2024 RSV VACCINE Completed 02/02/2023 SMOKING STATUS SCREENING (On ce After 26 Yrs) Completed 08/17/2024 HEPATITIS A VACCINES Aged Out No long er eligible based on patient's age to complete this topic HIB VACCINES Aged Out No longer eligi ble based on patient's age to complete this topic MENINGOCOCCAL VACCINES (ACWY) Aged Out No longer eligible based on patient's age to complete this topic MENINGOCOCCAL VACCINES (B) Aged Out N o longer eligible based on patient's age to complete this topic Medical Devices Implanted Type Area Environmental Services Technician Device Identifier Shelf Expiration Date Model / Serial / Lot Humerus Plate 3.5x90mm 6 Hole Hd 3 Shaft Bone Proximalimal Lcp Standard - [id number] Implanted:Qty: 1 on 08/19/2018 by Cl Drummond MD at [facility] Left: Humerus SYNTHES 241.901 / 241.901 / Screw Bone 28x3.5mm Compression Ss Locking Self Tapping Full Thread T15 Stardrive Recess - [id number] Implanted:Qty: 1 on 08/19/2018 by Cl Drummond MD at [facility] Left: Humerus SYNTHES 212.110 / / Screw Bone 30x3.5mm Compression Ss Locking Self Tapping Full Thread T15 Stardrive Recess - [id number] Implanted:Qty: 2 on 08/19/2018 by Cl Drummond MD at [facility] Left: Humerus SYNTHES 212.111 / / Screw Bone 36x3.5mm Compression Ss Locking Self Tapping Full Thread T15 Stardrive Recess - [id number] Implanted:Qty: 2 on 08/19/2018 by Cl Drummond MD at [facility] Left: Humerus SYNTHES 212.115 / / Screw Bone 38x3.5mm Compression Ss Locking Self Tapping Full Thread T15 Stardrive Recess - [id number] Implanted:Qty: 2 on 08/19/2018 by Cl Drummond MD at [facility] Left: Humerus SYNTHES 212.116 / / Screw Bone 42x3.5mm Ss Compression Locking Self Tapping Full Thread T15 Stardrive Recess - [id number] Implanted:Qty: 1 on 08/19/2018 by Cl Drummond MD at [facility] Left: Humerus SYNTHES 212.118 / / Screw Bone 46x3.5mm Lcp Ss Locking Self Tapping Stardrive Recess - [id number] Implanted:Qty: 1 on 08/19/2018 by Cl Drummond MD at [facility] Left: Humerus SYNTHES 212.136 / / Screw Bone 3.5x28mm Cortex Self Tapping Fully Threaded Hex Head Ss - [id number] Implanted:Qty: 1 on 08/19/2018 by Cl Drummond MD at [facility] Left: Humerus SYNTHES 204.828 / / Graft Tissue 1 To 8mmx15 Freeze Dried Cancellous Crushed - [id number] Implanted:Qty: 1 on 08/19/2018 by Cl Drummond MD at [facility] Left: Humerus [employer] 06/09/2023 CAN15 / [id number] / Procedures Procedure Name Priority Date/Time Associated Diagnosis Comments TSH Routine 08/17/2024 4:51 PM EDT Age-related osteoporosis without current pathological fracture from Last 3 Months or Most Recently Relevant to Health Maintenance Results * (ABNORMAL) TSH (08/17/2024 4:51 PM EDT) TSH 18.33(H) 0.34 - 5.00 uIU/mL [facility] Blood 08/17/2024 4:51 PM EDT 08/17/2024 8:28 PM EDT us Kris Bender MD LAB BLOOD ORDERABLES Final Re sult [address] [address], [facility] [phone] from Last 3 Months or Most Recently Relevant to Health Maintenance Insurance MEDICARE PPO BLUE REPLACEMENT MEDICARE PPO BLUE REPLACEMENT MEDICARE PPO BLUE REPLACEMENT [place] [address] MEDICARE PPO BLUE [address]AC[place] [address] [address] MEDIC[address]PO [address] [place] [address] MEDICARE PPO BLUE REPLACEMENT [place] BLUE REPLACEMENT [place] Advance Directives For more information, please contact: [phone] (9AM - 5PM [facility], Wednesday-Wednesday) Documents on File Type Date Recorded 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 It is not the complete legal health record.[facility]
--- OUTSIDE RECORDS SUMMARY | 2024-12-01 09:50 | XMS_ITS | Encounter Summary ---
Author Organization [facility] Address [address] [place] [address] Phone Care Team Providers Care Art Sales Consultant Name Role Phone Sendy Holm MD Primary Care P rovider Encounter Details Date Type Department Care Team (Late st Contact Info) Description 08/19/2018 Procedure Pass [facility] [address] [place] [phone] Social History Tobacco Use Types Packs/Day Years [...] on filedocumented in this encounter Care Teams Art Sales Consultant Relationship Specialty Start Date End Date Sendy Holm MD [address] [place] [address] PCP - General 04/01/16 documented as of this encounter Additional Source Comments The information contained in this document represents components of the legal health record. It is not the complete legal health record.[facility]
--- OUTSIDE RECORDS SUMMARY | 2024-12-01 09:50 | XMS_ITS ---
Author Name [facility] Organization Unknown History of Medication Use Medication Directions Dispensed Refills Start Date End Date Stat us amoxicillin 500 mg capsule TAKE 4 CAPSULES (2 GRAM DOSE) BY MOUTH 1 HOUR BEFORE INJECTION 02/03/2024 completed Paxlovid 150 mg-100 mg tablets in a dose pack (Renal Dose) TAKE 2 TABLETS BY MOUTH TWICE A DAY 02/03/2024 completed morphine ER 15 mg tablet,extended release TAKE 1 TABLET BY MOUTH EVERY 12 HOURS active Vitamin D2 1,250 mcg (50,000 unit) capsule Take by oral route. active Allergies Allergen Reaction Severity Comment Documented Date Source Statu s [facility] active SUBSTANCE WITH SULFONAMIDE STRUCTURE AND ANTIBACTERIAL MECHANISM OF ACTION (SUBSTANCE) [facility] Problems Problem Status Onset Date Problem Type Date of Resoluti on Source Spinal stenosis active 2020-02-[address] [facility] Menopausal flushing active 2020-02-29 ProblemAct [facility] Contusion to heart active 2020-02-29 ProblemAct [facility] Respiratory distress active 2020-02-29 ProblemAct [facility] Hypothyroidism [facility] 2015-07-25 [facility] Immun[facility] Vaccine Date Source Lot Number Status Influenza, adjuvanted, quadrivalent, PF 02/02/2023 [facility] [id number] completed RSV, recombinant, protein carr bunit RSVpreF, adjuvant reconstituted, 0.5 mL, PF 02/02/2023 [facility] [id number] completed Influenza, split virus, triv alent, preservative 01/17/2019 [facility] completed Influenza, split virus, quadrivalent, PF 12/15/2017 [facility] H [id number] completed Encounters Encounter Type Encounter Reason Primary Diagnosis Location Date Ambulatory 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
== END 2024-12-01 10:02 | disposition home or self-care (01) ==
LOC: HO.HMCFM 09:12
PROVIDERS: PCP Internal Medicine; Visit Provider Internal Medicine
DX: E03.9 Hypothyroidism, unspecified (principal); E78.5 Hyperlipidemia, unspecified; M54.16 Radiculopathy, lumbar region

== ENCOUNTER 2024-12-01 09:12 | Outpatient (REF) | payer MEDICARE, SELFPAY ==
[2024-12-01 15:19] LABS: Cholesterol 207 mg/dL (<200); HDL Cholesterol 73 mg/dL (>40); Iron 109 mcg/dL (30-160); Percent Iron Saturation 39 % (15-50); Total Iron Binding Capacity 277 mcg/dL (228-428); Triglycerides 66 mg/dL (<150); Unsaturated Iron Binding 168 ug/dL
[2024-12-01 15:28] LABS: Free T4 (Free Thyroxine) 1.02 ng/dL (0.71-1.85); Thyroid Stimulating Hormone 2.46 uIU/mL (0.32-4.0)
[2024-12-01 15:34] LABS: Folate 12.5 ng/mL (> or = 4.0); Vitamin B12 701 pg/mL (200-900)
[2024-12-07 15:03] LABS: Vitamin D 25-OH, D2 14 ng/mL; Vitamin D 25-OH, D3 35 ng/mL; Vitamin D 25-OH, Total 49 ng/mL (30-100)
== END 2024-12-01 09:13 | disposition home or self-care (01) ==
LOC: HO.WFDLDS 09:12
PROVIDERS: PCP Internal Medicine; Visit Provider Internal Medicine
DX: M81.0 Age-related osteoporosis without current pathological fracture (principal); E03.9 Hypothyroidism, unspecified; E78.5 Hyperlipidemia, unspecified; R53.83 Other fatigue; M54.16 Radiculopathy, lumbar region
CPT/HCPCS: 36415; 80061; 82306; 82607; 82746; 83540; 84439; 84443; 84480; 84481; 86376; 99212